=== PATIENT | female | born 1950 | race Caucasian/White ===

== ENCOUNTER 2017-09-29 07:44 | Day surgery (SDC) | payer MEDICARE ==
[~2017-09-29 07:44] MED LIST: Midazolam 1 MG/ML 2 ML SDV ONE; fentaNYL 100 MCG/2 ML SDV ONE
[2017-09-29] MEDS ORDERED: Midazolam 1 MG/ML 2 ML SDV IV ONE ×3 (07:45→09:04)
[2017-09-29] MEDS ORDERED: Lactated Ringers 1,000 ML IV SCH (08:30)
[2017-09-29] MEDS ORDERED: Benzocaine 20% Oral Spray 59.2 ML Canister ONE (09:02)
[2017-09-29] MEDS ORDERED: Benzocaine 20% Oral Spray 59.2 ML Canister MUCMEM ONE (09:04)
--- NOTE | 2017-09-29 10:39 | OR ---
DATE: 09/29/2017 PREOPERATIVE DIAGNOSES: Gastroesophageal reflux disease and dysphagia. POSTOPERATIVE DIAGNOSES: Gastroesophageal reflux disease and dysphagia. PROCEDURE: Esophagogastroduodenoscopy with photograph. ANESTHESIA: Conscious sedation with IV Versed and oral topical anesthesia. SPECIMEN: None. OPERATIVE FINDINGS: Hiatal hernia, 2 cm. No evidence of reflux esophagitis, strictures, or masses. Gastric and duodenal evaluation are normal. RECOMMENDATION: Follow up as needed. INDICATION FOR PROCEDURE: This 67-year-old female has increasing dysphagia over the last month. She has not had any prior exams. PROCEDURE IN DETAIL: After adequate preparation, a gastroscope was inserted into the esophagus. This was easily passed down to the distal esophagus, where she shows about a 2 cm hiatal hernia. A photograph of the hernia sac was taken. The distal esophagus appeared to be normal. There was no evidence of esophagitis or Michael's. The scope was advanced into the stomach. Both forward and retroflexed views were done and are normal. The scope was advanced through the pylorus, and the first and second parts of the duodenum were also normal. The air was suctioned from the stomach, and the scope was removed. [facility] /[id number]
== END 2017-09-29 11:10 | disposition home or self-care (01) ==
LOC: DL.ENDO 07:44
PROVIDERS: ATTEND Surgery
DX: R13.10 Dysphagia, unspecified (principal); K21.9 Gastro-esophageal reflux disease without esophagitis; K44.9 Diaphragmatic hernia without obstruction or gangrene; Z87.891 Personal history of nicotine dependence
CPT/HCPCS: 43235; J2250; J7120

== ENCOUNTER 2021-08-10 10:43 | Emergency (ER) | payer MEDICARE ==
[2021-08-10] MEDS ORDERED: Lisinopril 10 MG Tab PO ONE ×2 (10:44→12:25)
[2021-08-10 12:06] LABS: ANION GAP 11.1 mEq/L (7-13); CHLORIDE,CL 103 mmol/L (98-107); SODIUM,NA 140 mmol/L (136-145)
[2021-08-10 12:44] LABS: AMPHETAMINES,URINE NEGATIVE (NEGATIVE); BARBITURATES,URINE NEGATIVE (NEGATIVE); BENZODIAZEPINE,URINE NEGATIVE (NEGATIVE); MDMA (ECSTASY), URINE NEGATIVE (NEGATIVE); METHADONE,URINE NEGATIVE (NEGATIVE); METHAMPHETAMINES,URINE NEGATIVE (NEGATIVE); OPIATES,URINE NEGATIVE (NEGATIVE); OXYCODONE,URINE NEGATIVE (NEGATIVE); PHENCYCLIDINE,URINE NEGATIVE (NEGATIVE); TCA,URINE NEGATIVE (NEGATIVE)
[2021-08-10] MEDS ORDERED: Lisinopril 10 MG Tab ONE (13:29)
== END 2021-08-10 13:35 | disposition home or self-care (01) ==
LOC: DL.ED 10:43
DX: R55 Syncope and collapse (principal); I10 Essential (primary) hypertension; Z91.048 Other nonmedicinal substance allergy status
CPT/HCPCS: 36415; 80053; 80305; 80307; 81001; 83605; 83735; 83880; 84443; 84484; 85025; 86140; 87086; 93005; 99284; A9270; 93010; 99283